=== PATIENT | male | born 1980 | race Caucasian/White ===

== ENCOUNTER 2020-10-18 16:21 | Emergency (ER) | payer MEDICAID, SELFPAY ==
[~2020-10-18] VITALS: Ht 167.6 cm; Wt 77.1 kg
[2020-10-18 16:23] VITALS: Ht 167.6 cm; Wt 77.1 kg
[2020-10-18 17:47] VITALS: BP 136/94
== END 2020-10-18 17:47 | disposition home or self-care (01) ==
LOC: ED 16:21
DX: U07.1 COVID-19 (principal); R07.89 Other chest pain
CPT/HCPCS: U0003